=== PATIENT | female | born 1970 | race Caucasian/White ===

== ENCOUNTER → 2020-01-19 13:22 | Outpatient (BNVA) | payer OTHER, SELFPAY | PROVIDERS: Family Provider Nurse Practitioner Family; PCP Nurse Practitioner Family; Visit Provider Obstetrics & Gynecology | DX: R39.15 Urgency of urination (principal); N39.3 Stress incontinence (female) (male); N95.1 Menopausal and female climacteric states; N89.8 Other specified noninflammatory disorders of vagina | CPT/HCPCS: 80053; 81000; 87210 ==

== ENCOUNTER 2020-06-15 06:00 | Outpatient (RCR) | payer OTHER, SELFPAY | END 2020-07-06 23:59 | disposition home or self-care (01) | LOC: SPT 06:00 | PROVIDERS: PCP Nurse Practitioner Family; Referring Provider Nurse Practitioner Family; Visit Provider Nurse Practitioner Family | DX: M54.16 Radiculopathy, lumbar region (principal) | CPT/HCPCS: 97110; 97161 ==

== ENCOUNTER 2020-06-15 12:31 | Outpatient (CLI) | payer OTHER, SELFPAY ==
--- NOTE | 2020-06-15 12:56 | XR_ITS ---
WS: [id number] Bone mineral density performed on a [employer], 06/15/2020 Clinical data: ASYMPTOMATIC MENOPAUSAL Findings: The first 4 lumbar vertebral bodies demonstrated the bone mineral density of 0.888 g/sq cm for a yolanda g adult T score of -2.6. Measurement of the left hip reveals a bone mineral density of 0.848 g/cm2 with a young adult T score of -1.3. Measurement of the right hip reveals the bone mineral density of 0.871 g/cm2 for young adult T score of -1.1. XR/XR DEXA axial skeleton* [id number] Impression: 1. Osteoporosis of the lumbar spine. 2. Osteopenia of both hips.
== END 2020-06-15 12:32 | disposition home or self-care (01) ==
PROVIDERS: PCP Nurse Practitioner Family; Visit Provider Nurse Practitioner Family
DX: Z78.0 Asymptomatic menopausal state (principal); M81.0 Age-related osteoporosis without current pathological fracture; M85.88 Other specified disorders of bone density and structure, other site
CPT/HCPCS: 77080

== ENCOUNTER 2020-06-18 07:06 | Outpatient (CLI) | payer OTHER, SELFPAY ==
--- NOTE | 2020-06-18 07:12 | MR_ITS ---
WS: [id number] MRI CERVICAL SPINE NONCONTRAST HISTORY: HEADACHE COMPARISON: None available. Technique: Multiplanar, multisequence noncontrast imaging of the cervical spine. Straightening and reversal the normal cervical lordosis. Reversal centered at the C4-5 disc level. Th ere is disc osteophyte contact on the ventral thecal sac at the C4-5 and C5-6 levels. Signal within the cervical cord is normal. Visualized posterior fossa is unremarkable. Craniocervical junction, C1 and C2 relationship, odontoid process and soft tissues are normal. C2-C3: Normal. C3-C4: There is shallow central disc protrusion with no stenosis or cord contact. C4-C5: Diffuse annular disc bulging and osteophytic ridging. There is a focal central moderate disc p rotrusion contacting and displacing the thecal sac and cervical cord. Moderate central stenosis with only mild foraminal narrowing. C5-C6: Diffuse osteophytic ridging and annular disc bulging with disc protrusion. There is a focal ce ntral to LEFT paracentral and foraminal disc osteophyte. Asymmetric narrowing and contact on the cerv ical cord, greatest on the LEFT. Mild central and moderate LEFT foraminal stenosis. Mild RIGHT forami nal stenosis. C6-C7: Mild osteophytic ridging. No stenosis. C7-T1: Normal. Paraspinal soft tissue are normal. MR/MR cervical spin wo con* [id number] IMPRESSION: 1. Reversal of the normal cervical lordosis centered at C4-5 and C5-6 with dis c osteophyte contacting the cervical cord. 2. Moderate central stenosis at C4-5 due to disc osteophyte protrusions and co ntact of the ventral cord. Only mild foraminal narrowing. 3. Mild central with moderate LEFT foraminal stenosis at C5-6. Contact and dis placement of the LEFT lateral cervical cord due to disc osteophyte disease.
--- NOTE | 2020-06-18 07:12 | MR_ITS ---
WS: [id number] MRI THORACIC SPINE noncontrast. HISTORY: PAIN IN THORACIC SPINE COMPARISON: None available. TECHNIQUE: Multiplanar sequences are performed in sagittal and axial planes. Mild RIGHT curvature of the thoracic spine. Posterior thoracic alignment is otherwise normal. No comp ression fractures or marrow edema. Signal within the cord is normal. Conus tapers normally ends at th e T12-L1 level. T1-2: Normal. T2-3: Small RIGHT foraminal narrowing due to facet disease. T3-4: Mild bilateral facet joint disease. Only mild RIGHT foraminal narrowing. There is a shallow RI GHT paracentral disc protrusion without cord contact. T4-5: Moderate RIGHT foraminal narrowing due to facet joint arthritis and osteophytes. Very tiny yoly tral disc protrusion. T5-6: Mild bilateral facet joint arthritis, RIGHT greater than LEFT. RIGHT foraminal nerve root slee ve diverticulum. T6-7: Mild bilateral foraminal stenosis due to facet disease. T7-8: Mild foraminal stenosis due to facet disease and osteophytes. Very small LEFT nerve root sleev e diverticulum. T8-9: Small bilateral nerve root sleeve diverticulum without significant stenosis. T9-10: Mild LEFT foraminal stenosis due to facet disease. Small LEFT nerve root sleeve diverticulum. T10-11: Mild facet joint arthritis. 9 mm LEFT nerve root sleeve diverticulum. T11-12: Moderate-sized bilateral nerve root sleeve diverticulum. Largest on the RIGHT measures 10 mm . T12-L1: Small LEFT foraminal nerve root sleeve diverticulum. Numerous bilateral small renal cysts. Largest cyst on the RIGHT measures 18 mm. MR/MR thoracic spin wo con* [id number] IMPRESSION: 1. No high-grade central stenosis. 2. Mild RIGHT curvature thoracic spine. 3. Multilevel nerve root sleeve diverticula with mild to moderate facet joint arthritis. 4. Most significant foraminal stenosis on the RIGHT at T4-5.
== END 2020-06-18 07:07 | disposition home or self-care (01) ==
LOC: RADSHAW 07:09
PROVIDERS: PCP Nurse Practitioner Family; Visit Provider Nurse Practitioner Family
DX: R51.9 Headache, unspecified (principal); M54.6 Pain in thoracic spine; M43.8X4 Other specified deforming dorsopathies, thoracic region; M47.814 Spondylosis without myelopathy or radiculopathy, thoracic region; M48.04 Spinal stenosis, thoracic region; M48.02 Spinal stenosis, cervical region; M25.78 Osteophyte, vertebrae
CPT/HCPCS: 72141; 72146

== ENCOUNTER → 2020-07-05 08:46 | Outpatient (BNVA) | payer OTHER, SELFPAY | PROVIDERS: PCP Nurse Practitioner Family; Visit Provider Orthopaedic Surgery | DX: M54.2 Cervicalgia (principal); M47.892 Other spondylosis, cervical region | CPT/HCPCS: 72050 ==

== ENCOUNTER → 2020-07-11 08:49 | Outpatient (BNVA) | payer OTHER, SELFPAY | PROVIDERS: PCP Nurse Practitioner Family; Referring Provider Orthopaedic Surgery; Visit Provider Anesthesiology Pain Medicine | DX: M79.18 Myalgia, other site (principal); M47.12 Other spondylosis with myelopathy, cervical region; M54.12 Radiculopathy, cervical region; M47.812 Spondylosis without myelopathy or radiculopathy, cervical region; M47.814 Spondylosis without myelopathy or radiculopathy, thoracic region | CPT/HCPCS: 20553; 99205 ==

== ENCOUNTER → 2020-07-27 09:57 | Outpatient (BNVA) | payer OTHER, SELFPAY | PROVIDERS: PCP Nurse Practitioner Family; Visit Provider Orthopaedic Surgery | DX: Z01.812 Encounter for preprocedural laboratory examination (principal); Z20.822 Contact with and (suspected) exposure to COVID-19 | CPT/HCPCS: 87635 ==

== ENCOUNTER 2020-08-01 05:37 | Day surgery (SDC) | payer OTHER, SELFPAY ==
[2020-07-27 10:50] VITALS: BMI 33.3
--- NOTE | 2020-07-27 13:06 | ANES.PREANE2 ---
Pre-Anesthetic Assessment Pre-Anesthetic Assessment: Height/Weight: Height 1.65 m Weight 90.718 kg Preop Diagnosis: cervical spondylosis with Myelopathy Proposed Procedure: Operation Date: 08/01/20 07:00 Proposed Procedures p Anterior Cervical Discectomy & Fusion ACDF C4/5 5/6 06145 72065 52191 76574 12529 M47.12(Not Applicable) - Charlie Vidal, DO Was Beta Sonu taken within 24 hours: Yes Was Clonidine taken within 24 hours: N/A Social: Social History: No alcohol and No tobacco Exam: Pre-Anes Outpt Exam: alert, oriented x 3, clear to auscultation bilaterally and regular rate & rhythm Airway: Submandibular: WNL Cervical ROM: WNL MP: 2 Dentition: Full CV/HEM: CV/HEM: HTN Comments: MVP GI: GI: GERD Metabolic: Metabolic: Morbid obesity Musc/skel: Comments: Neck pain, OK ROM Anesthetic Plan: ASA status: 3 Anesthesia: General Other: PONV Risk of > 500 ml blood loss (7ml/kg in children): No PFSH Anesthesia PFSH: Medical History Hypertension Mitral valve prolapse Obesity Surgical History Broken arm Right arm repair. History of repair of hiatal hernia Laparoscopic. S/P laparoscopic cholecystectomy S/P tonsillectomy and adenoidectomy S/P total abdominal hysterectomy and bilateral salpingo-oophorectomy (~1997) Endometriosis. Family History Father Diabetes Social History (Updated 07/11/20 @ 09:33 by Lucrecia Eller LPN) Smoking and tobacco status: never smoked Alcohol intake: current Alcohol intake frequency: holidays/special occasions only History of recent travel: No Data Anesthesia Cardiac Studies: No Data to Display
[2020-08-01] VITALS (11 sets, daily range): BP systolic 105–160; BP diastolic 80–103; PULSE 68–89; RESP 12–18; TEMP 36.2–36.9; O2SAT 94–99
--- NOTE | 2020-08-01 | SCC_ITS ---
Procedure Done: 1. Anterior diskectomy C4/5 2. Anterior discectomy C5/6 3. Insertion of cage C4/5 4. Insertion of Cage C5/6 5. Instrumentation with anterior plate from C4-C6 6. Use of allograft 24.0 seconds of fluoroscopic guidance, for a cumulative dose of 0.59 mGy, was provided to Dr. Vidal by the radiology department. C-arm images of the cervical spine were saved for the patient's permanent record. CHERID
[2020-08-01] MEDS: sodium chloride 0.9% 1,000 ML 30 ML IV (06:32)
[2020-08-01] MEDS: scopolamine 1.5 Patch 1 PATCH TRANSDERMA (06:33)
--- NOTE | 2020-08-01 06:39 | W.PM.OPSUD ---
Surgery/Procedure H&P Update DATE OF PROCEDURE: August 01, 2020 DATE H&P PERFORMED: 07/05/20 H&P UPDATE INFORMATION: I have reviewed H&P completed within last 30 days, I have examined patient prior to procedure and No changes to prior documentation PREOP DIAGNOSIS: cervical spondylosis with Myelopathy PLANNED PROCEDURE: Operation Date: 08/01/20 07:00 Proposed Procedures p Anterior Cervical Discectomy & Fusion ACDF C4/5 5/6 86429 04048 86617 [id number] 61916 M47.12(Not Applicable) - Charlie Vidal DO
--- NOTE | 2020-08-01 06:53 | P.ANESUD_ITS ---
Pre-Anesthetic Update Pre-Anesthetic Assessment: Date of Surgery/Procedure: 08/01/20 Preop Sadie gnosis: cervical spondylosis with Myelopathy Proposed Procedure: Operation Date: 08/01/20 07:00 Proposed Procedures p Anterior Cervical Discectomy & Fusion ACDF C4/5 07/12 36204 00711 73699 72914 24327 M47.12(Not Applicable) - Charlie Vidal, DO Any changes to Pre-Anesthetic Assessment?: No Last Intake: Intake Last Liquid Date 07/31/20 Last Liquid Time 22:00 Last Solid Date 08/01/20 Last Solid Time 19:30 Vitals: Temperature 98.5 F 08/01/20 06:18 Temperature Source Temporal Artery S can 08/01/20 06:18 Pulse Rate 68 08/01/20 06:18 Pulse Rhythm 08/01/20 06:18 Pulse Strength 3+ Normal 08/01/20 06:18 Respiratory Rate 18 08/01/20 06:18 Blood Pressure 105/80 08/01/20 06:18 Blood Pressure Magalis n 88 08/01/20 06:18 Pulse Oximetry 97 08/01/20 06:18 Oxygen Delivery Me thod 08/01/20 06:18 Exam: Pre-Anes Outpt Exam: alert, oriented x 3, clear to auscultation bilaterally and regular rate & rhythm Cardiac Studies: No Data to Display
[2020-08-01] MEDS: clindamycin 900 MG/50 ML PREMIX 100 MG IV (06:57)
--- NOTE | 2020-08-01 09:10 | P.OP_ITS ---
Operative Report Date of procedure: August 01, 2020 Pre-op Diagnosis: cervical spondylosis with Myelopathy Post-op diagnosis: same Procedure Done: 1. Anterior diskectomy C4/5 2. Anterior discectomy C5/6 3. Insertion of cage C4/5 4. Insertion of Cage C5/6 5. Instrumentation with anterior plate from C4-C6 6. Use of allograft Anesthesia: General Estimated blood loss (mL): 25 Condition: stable Disposition: PACU Procedure: 1. Anterior diskectomy C4/5 2. Anterior discectomy C5/6 3. Insertion of cage C4/5 4. Insertion of Cage C5/6 5. Instrumentation with anterior plate from C4-C6 6. Use of allograft The patient was taken to the operating room, where he underwent general endotracheal anesthesia without complications. He was then positioned supine on the operating table, and all areas of impingement were well padded. The arms were carefully padded and tucked at his sides. A roll was placed between the shoulder blades.. An x-ray was done to determine the appropriate level for the skin incision. The entire neck was then sterilely prepped and draped in the usual fashion. Neuromonitoring was attached prior to prepping. A transverse skin incision was made and carried down to the platysma muscle. This was then split in line with its fibers. Blunt dissection was carried down medial to the carotid sheath and lateral to the trachea and esophagus until the anterior cervical spine was visualized. A needle was placed into a disc and an x-ray was done to determine its location. The longus colli muscles were then elevated bilaterally with the electrocautery unit. Self-retaining retractors were placed deep to the longus colli muscle. Attention was brought to the C4/5 level that was confirmed on x-ray. A caspar pin was placed into the C 4 vertebrae and the C5 vertebrae. The disk space was then distracted. The microscope was then brought in. A radical anterior discectomies were performed at C4/5. This included complete removal of the anterior annulus, nucleus, and posterior annulus. The posterior longitudinal ligament was removed as were the posterior osteophytes. Foraminotomies were then accomplished bilaterally. This was done using a high speed jd, kerrison rongeurs and curretes Once all of this was accomplished, the curved currette was used to check for any residual compression. The central canal was wide open as were the foramen. A high-speed bur was used to remove the cartilaginous endplates above and below the interspace. Bleeding cancellous bone was exposed. The disc space were measured and appropriate size cage were placed sterilely onto the field. Allograft graft was packed into the cages. The cage was then placed and there was good juxtaposition against the bleeding decorticated surfaces and good distraction of each interspace. A size 6 cage was used Attention was brought to the next interspace. Attention was brought to the C5/6 level that was confirmed on x-ray. A caspar pin was placed into the C6 after the (C4 [place] pin was removed bone wax was used) vertebrae and the C5 vertebrae remained. The disk space was then distracted. The microscope was then brought in. A radical anterior discectomies were performed at []. This included complete removal of the anterior annulus, nucleus, and posterior annulus. The posterior longitudinal ligament was removed as were the posterior osteophytes. Foraminotomies were then accomplished bilaterally. This was done using a high speed jd, kerrison rongeurs and curretes Once all of this was accomplished, the curved currette was used to check for any residual compression. The central canal was wide open as were the foramen. A high-speed bur was used to remove the cartilaginous endplates above and below the interspace. Bleeding cancellous bone was exposed. The disc space were measured and appropriate size cage were placed sterilely onto the field. Allograft graft was packed into the cages. The cage was then placed and there was good juxtaposition against the bleeding decorticated surfaces and good distraction of each interspace. A size 7 cage was used The [place] pins were removed. Bone wax was used to prevent any bleeding from occurring at the pin sites. The appropriate size anterior cervical locking plate was chosen and bent into gentle lordosis. Two screws were then placed into each of the vertebral bodies at C4 and C6. Only placed 1 screw in C5. There was excellent purchase. A final x-ray was done confirming good position of the hardware and Cages. The locking screws were then applied, also with excellent purchase. Following a final copious irrigation, there was good hemostasis and no dural leaks. The carotid pulse was strong. The wounds were then closed in layers using 2-0 Vicryl suture for the platysma muscle, 2-0 Vicryl suture for the subcutaneous tissue, and 4-0 monocryl suture in a subcuticular skin closure. Glue was placed followed by application of a sterile dressing. The drain was hooked to bulb suction. A soft collar was applied. The patient was then carefully returned to the supine position on his hospital bed where he was reversed and extubated and taken to the recovery room having tolerated the procedure well.
--- NOTE | 2020-08-01 09:32 | XR_ITS ---
WS: [id number] Exam: XR cervical spine 3V* [id number] Date/Time of Exam: 08/01/2020 9:32 AM Reason For Exam: OR PICS Intraoperative AP and lateral C-arm images of the cervical spine are submitted for evaluation. There is interbody fusion of the C-spine from C4 to C6 with anterior plate and screw fixation. There are disc spacers at C4-5 and C5-6. The fusion is in anatomic alignment. An endotracheal tube is noted in the airway. XR/XR cervical spine 3V* [id number] IMPRESSION: 1. Anterior cervical fusion from C4 to C6 appearing to be in good alignment wit hout obvious complication.
--- NOTE | 2020-08-01 09:41 | SUR.PHASEI ---
0941- ORAL AIRWAY OUT, SIMPLE MASK IN PLACE AT 6LPM SAT 97%
--- NOTE | 2020-08-01 10:46 | SUR.PHASEI ---
Patient was fitted for neck brace by physical therapy. Now states pain is 8/10, placed order for pain medication. Patient eating a cracker and drinking a sprite. If PO intake is tolerated will administer pain medication
[2020-08-01] MEDS: HYDROcodone-acetaminophen 5-325 mg Tablet 2 TAB PO (10:56)
--- NOTE | 2020-08-01 13:51 | ANE.PACU2 ---
Inpatient post-anesthesia follow up: Airway intact: Yes Vital signs: Temperature 97.6 F Pulse Rate 76 Respiratory Rate 17 Blood Pressure 145/98 Pulse Oximetry 94 Oxygen Delivery Me thod Nasal Cannula Oxygen Flow Rate 2 Fraction of Inspir ed Oxygen Hydration adequate: Yes Nausea and vomiting: No Pain level: 3 Mental status: Baseline
== END 2020-08-01 11:36 | disposition home or self-care (01) ==
PROVIDERS: PCP Nurse Practitioner Family; Visit Provider Orthopaedic Surgery
PROC: 0RB30ZZ Excision of Cervical Vertebral Disc, Open Approach (ICD-10-PCS; CPT 22551; principal; 2020-08-01 07:00)
DX: M47.12 Other spondylosis with myelopathy, cervical region (principal); I10 Essential (primary) hypertension; K21.9 Gastro-esophageal reflux disease without esophagitis; E66.01 Morbid (severe) obesity due to excess calories; Z68.33 Body mass index [BMI] 33.0-33.9, adult
CPT/HCPCS: 20930; 22551; 22552; 22845; 22853 ×2; 72040; 76000; 97110; C1713; C9359; J0330; J1100; J1170; J2250; J2405; J2704; J3010; J3490; J7030; L0174

== ENCOUNTER → 2020-09-20 16:13 | Outpatient (BNVA) | payer OTHER, SELFPAY | PROVIDERS: PCP Nurse Practitioner Family; Visit Provider Orthopaedic Surgery | DX: Z48.89 Encounter for other specified surgical aftercare (principal) | CPT/HCPCS: 72040 ==

== ENCOUNTER → 2020-10-27 14:36 | Outpatient (BNVA) | payer OTHER, SELFPAY | PROVIDERS: PCP Nurse Practitioner Family; Visit Provider Registered Nurse Neonatal Intensive Care | DX: Z20.822 Contact with and (suspected) exposure to COVID-19 (principal) | CPT/HCPCS: 87635 ==

== ENCOUNTER → 2020-11-20 08:14 | Outpatient (BNVA) | payer OTHER, SELFPAY | PROVIDERS: PCP Nurse Practitioner Family; Visit Provider Orthopaedic Surgery | DX: M47.12 Other spondylosis with myelopathy, cervical region (principal); Z48.89 Encounter for other specified surgical aftercare | CPT/HCPCS: 72040 ==

== ENCOUNTER → 2021-06-07 10:44 | Outpatient (BNVA) | payer OTHER, SELFPAY | PROVIDERS: PCP Nurse Practitioner Family; Referring Provider Nurse Practitioner Women's Health; Visit Provider Obstetrics & Gynecology | DX: N99.3 Prolapse of vaginal vault after hysterectomy (principal) | CPT/HCPCS: 81000 ==

== ENCOUNTER → 2021-06-19 10:22 | Outpatient (BNVA) | payer OTHER, SELFPAY | PROVIDERS: PCP Nurse Practitioner Family; Referring Provider Registered Nurse; Visit Provider Orthopaedic Surgery | DX: M17.11 Unilateral primary osteoarthritis, right knee (principal); M25.561 Pain in right knee | CPT/HCPCS: 73560; 73565 ==

== ENCOUNTER 2021-07-26 08:00 | Outpatient (CLI) | payer OTHER, SELFPAY ==
--- NOTE | 2021-07-26 08:00 | MR_ITS ---
WS: [id number] MRI RIGHT KNEE HISTORY: Fell down stairs several years ago with knee pain. Swelling. COMPARISON: Radiograph 06/19/2021. Anterior cruciate ligament: Intact. Posterior cruciate ligament: Intact. Medial collateral ligament: Intact. Posterior lateral corner structures: Intact. Medial menisci: Intact. Normal signal, size and shape. Lateral meniscus: Intact. Normal signal, size and shape. Extensor mechanism: Distal quadriceps tendon and patellar tendons are intact. Fluid and soft tissue: Very small amount of fluid in the suprapatellar joint space. Just slightly gre ater than normal. No Tovar's cyst. Osseous and articular structures: Patellofemoral compartment: Mild narrowing of the patellofemoral compartment. Mild thinning and fissu ring of the cartilage. No marrow edema. Medial compartment: Mild narrowing of the medial compartment. There is moderate loss of cartilage wit h fissuring and thinning. No marrow edema or fracture. Lateral compartment: Minimal narrowing of the lateral compartment. Very superficial fraying of the ca rtilage along the tibial plateau. There is a well-circumscribed intra-articular fragment measuring 9 x 7 mm adjacent to the distal ACL. This follows marrow signal on all sequences and probably represents a small osseous or cartilage fra gment. Fragment is towards the anterior intercondylar notch. MR/MR knee RT wo con* [id number] IMPRESSION: 1. Intra-articular fragment measuring 9 x 7 mm is probably a fragment of bone or cartilage which is within the anterior intercondylar notch and closely assoc iated with the distal ACL. The donor site is not evident. 2. Mild narrowing of the medial compartment with moderate loss of cartilage. 3. No meniscal tear. 4. Mild chondromalacia patella.
== END 2021-07-26 08:01 | disposition home or self-care (01) ==
LOC: RAD 08:00
PROVIDERS: PCP Nurse Practitioner Family; Visit Provider Orthopaedic Surgery
DX: M17.11 Unilateral primary osteoarthritis, right knee (principal)
CPT/HCPCS: 73721

== ENCOUNTER → 2021-09-06 09:55 | Outpatient (BNVA) | payer OTHER, SELFPAY | PROVIDERS: PCP Nurse Practitioner Family; Visit Provider Obstetrics & Gynecology | DX: N39.46 Mixed incontinence (principal); N81.10 Cystocele, unspecified; N81.6 Rectocele; N81.9 Female genital prolapse, unspecified; Z01.812 Encounter for preprocedural laboratory examination; N94.10 Unspecified dyspareunia | CPT/HCPCS: 80053; 81000; 85025; 86850; 86900 ==

== ENCOUNTER 2021-09-11 11:19 | Observation (INO) | payer OTHER, SELFPAY ==
[2021-09-06 10:51] VITALS: BMI 33.6
--- NOTE | 2021-09-06 11:06 | ANES.PREANE2 ---
Pre-Anesthetic Assessment Height/Weight: Height 1.7 m Weight 97.522 kg Preop Diagnosis: cervical spondylosis with Myelopathy Operation Date: 09/11/21 09:00 Proposed Procedures p Anterior Repair Anterior Colporrhaphy 14491/N81.10/N8136/Single incision sling 91187 to procedure(Not Applicable) - Bruce Sharpe MD s Sling(Not Applicable) - Bruce Sharpe MD Familial anesthetic complications: PONV - scop patch helps Social No alcohol and No tobacco Exam alert, oriented x 3, clear to auscultation bilaterally and regular rate & rhythm Airway Mallampati: Class III Dentition: full Pulmonary None reported CV/HEM MVP - No symptoms None reported Hepatic None reported GI Gastroesophageal Reflux Disease Metabolic None reported Musc/skel Osteoarthritis/DJD Neuropsych None reported Anesthetic Plan ASA status: 2 Anesthesia: General Risk of > 500 ml blood loss (7ml/kg in children): No Medications/Allergies Home Medications Medication Instructions Recorded Confirmed Last Taken Type atenolol 25 mg tablet 25 mg PO DAILY 01/19/20 09/06/21 09/06/21 History cholecalciferol (vitamin D3) 25 25 mcg PO DAILY 01/19/20 09/06/21 09/06/21 History mcg (1,000 unit) capsule lactobacillus combination no.8 3 3,000 mmu cells PO DAILY 01/19/20 09/06/21 09/06/21 History billion cell capsule (Adult Probiotic) esomeprazole magnesium 40 mg 40 mg PO DAILY 05/14/21 09/06/21 09/06/21 History capsule,delayed release (Nexium) estradiol 10 mcg vaginal tablet 10 mcg VAGINAL .twice weekly tab 06/07/21 09/06/21 09/05/21 History (Yuvafem) doxycycline hyclate 100 mg capsule 100 mg PO BID 09/06/21 09/06/21 09/06/21 History methylprednisolone [Medrol (Darvin)] See Taper PO .as directed 09/06/21 09/06/21 09/06/21 History Allergies Allergy/AdvReac Type Severity Reaction Status Date / Time Penicillins Allergy Unknown rash Verified 09/06/21 09:16 Sulfa (Sulfonamide AdvReac Intermediate nauseated Verified 09/06/21 09:16 Antibiotics) and sick to [facility] Anesthesia Medical History Cystic kidney disease Hypertension Mitral valve prolapse No pertinent past medical history neghx: dm,thyroid,dvt/pe PCP: Niraj Mckeon Obesity Surgical History Broken arm Right arm repair. H/O neck surgery (~2020) History of repair of hiatal hernia Laparoscopic. S/P laparoscopic cholecystectomy S/P tonsillectomy and adenoidectomy S/P total abdominal hysterectomy and bilateral salpingo-oophorectomy (~1997) Endometriosis. Family History Father Diabetes Hypertension Grandfather Colon cancer Maternal, dx age unknown Hypercholesteremia Maternal Mother Hypercholesteremia Hypertension Denies family history of Ovarian cancer Heart disease Breast cancer Uterine cancer Thyroid disease Stroke Social History Smoking and tobacco status: never smoked Data Anesthesia Cardiac Studies: No Data to Display
[2021-09-11] VITALS (19 sets, daily range): BP systolic 103–125; BP diastolic 68–91; PULSE 60–87; RESP 12–21; TEMP 36.3–36.8; O2SAT 91–100
[2021-09-11] MEDS: sodium chloride 0.9% 500 ML IV (08:02)
[2021-09-11] MEDS: scopolamine 1.5 Patch 1 PATCH TRANSDERMA (08:02)
--- NOTE | 2021-09-11 08:11 | P.ANESUD_ITS ---
Pre-Anesthetic Update Pre-Anesthetic Assessment: Date of Surgery/Procedure: 09/11/21 Preop Sadie gnosis: Cystocele, rectocele Proposed Procedure: Operation Date: 09/11/21 09:00 Proposed Procedures p Anterior Repair Anterior Colporrhaphy 64350/N81.10/N8136/Single incision sling [id number] to procedure(Not Applicable) - Bruce Sharpe MD s Sling(Not Applicable) - Bruce Sharpe MD Any changes to Pre-Anesthetic Assessment?: No Last Intake: Intake Last Liquid Date 09/10/21 Last Liquid Time 20:00 Last Solid Date 09/10/21 Last Solid Time 20:00 Vitals: Temperature 98.2 F 09/11/21 07:36 Temperature Source Temporal Artery S can 09/11/21 07:36 Pulse Rate 64 09/11/21 07:36 Pulse Rhythm 09/11/21 07:36 Pulse Strength 3+ Normal 09/11/21 07:36 Respiratory Rate 18 09/11/21 07:36 Blood Pressure 120/83 09/11/21 07:36 Blood Pressure Magalis n 95 09/11/21 07:36 Pulse Oximetry 96 09/11/21 07:36 Oxygen Delivery Me thod 09/11/21 07:36 Exam: Pre-Anes Outpt Exam: alert, oriented x 3, clear to auscultation bilaterally and regular rate & rhythm Additional Exam Findings (including area of procedure): Strong h/o PONV, last procedure (ACDF) no N/V with TIVA and phenergan Cardiac Studies: No Data to Display
--- NOTE | 2021-09-11 09:07 | W.PM.OPSUD ---
Surgery/Procedure H&P Update DATE OF PROCEDURE: September 11, 2021 DATE H&P PERFORMED: 09/06/21 H&P UPDATE INFORMATION: I have reviewed H&P completed within last 30 days, I have examined patient prior to procedure and No changes to prior documentation PREOP DIAGNOSIS: Cystocele, rectocele PLANNED PROCEDURE: Operation Date: 09/11/21 09:00 Proposed Procedures p Anterior Repair Anterior Colporrhaphy 91469/N81.10/N8136/Single incision sling 36098 to procedure(Not Applicable) - Bruce Sharpe MD s Sling(Not Applicable) - Bruce Sharpe MD
[2021-09-11] MEDS: vancomycin 1,000 MG in sodium chloride 0.9% 250 ML 250 MG IV (09:38)
[2021-09-11] MEDS: estrogens Conjugated Cream 30 gm 1 APPLIC VAGINAL (11:04)
--- NOTE | 2021-09-11 11:34 | PM.OP ---
Operative Report Date of procedure: September 11, 2021 Pre-op diagnosis: Preop Diagnosis Cystocele, rectocele Post-op diagnosis: Same as above Procedure done: Anterior colporrhaphy augmented with allograft. Single incision mid urethral sling. Posterior colporrhaphy. Cystoscopy Implants: Coloplast Altis single incision sling Surgeon: Bruce Sharpe MD Estimated blood loss (mL): 150 IV fluids (mL): 800 Urine output (mL): 300 Complications: none Procedure: After obtaining informed consent, the patient was taken to the operating room and placed in the supine position, given general anesthesia, and prepped and draped in sterile fashion. The abdomen, vulva and vagina were prepped and draped in a sterile manner. A time out procedure was performed. The anterior vaginal mucosa beneath the midurethra was infiltrated with 0.5% Marcaine with epinephrine. A vertical midline incision was made beneath the midurethra, nearly 1.5 cm length. Careful submucosal dissection was performed bilaterally up to the interior portion of the inferior pubic ramus. The insertion of adductor longus tendon on the patient?s pubic ramus was identified as reference land anna. Palpated the notch along the internal edge of ischiopubic ramus where the adductor longus tendon and the inferior pubic ramus meet. The Altis single incision sling (SIS) was selected. Then the needle of the SIS inserted aiming at the location of this notch. One of the integrated self-fixating tips place onto the needle by sliding it over the end of the needle. The needle/sling assembly was inserted toward the location of identified reference notch making sure that the flat of the handle is perpendicular to the desired path. The needle was tracked along the posterior surface of the ischiopubic ramus until the midline anna on the mesh is approximately at the midline position under the urethra. The needle was removed and the same was repeated on the contralateral side until the appropriate sling tension under the urethra was achieved ensuring that the mesh lays flat. The needle was removed and vaginal incision was closed in a running interlocking fashion with 2-0 Vicryl. The vaginal mucosa was then injected in the midline with normal saline. The vaginal mucosa was scored in the midline with the Bovie approximately 1 cm medial to the urethral meatus to 1 cm distal to the vaginal cuff. This vaginal mucosa was then undermined and then incised in the midline with the Metzenbaum scissors. The lateral aspects of the vaginal mucosa were then grasped with the Allis clamps and the vaginal mucosa was then dissected off the underlying fascia with the Metzenbaum scissors. Again, there was noted to be quite a bit of oozing at the incision, which was controlled with cautery. After adequate dissection was performed, bilaterally. A Coloplast dermal allograft was modified at time of application to fit spacea, 3 x 3 cm piece . The allograft placed in front of cystocele ready to be implanted facing the vagina mucosa. Suture is placed at distal end of graft and placed towards vaginal cuff. Final suture is placed on proximal portion of the graft to complete the placement overlying the bladder. Then Interrupted vertical mattress sutures of 0 Vicryl were used to elevate the cystocele superiorly. The excessive vaginal mucosa was then trimmed with the Metzenbaum scissors and the vaginal mucosa was then reapproximated in the running interlocking fashion with 2-0 Vicryl. A posterior repair was performed next. Posterior colpoperineorrhaphy was performed with Allis clamps to grasp hymenal caruncles to allow 2-3 fingerbreadths caliber; infiltrated with 1% Lidocaine with epinephrine before triangular incision. An incision was made across the introitus. Metzenbaum scissors were used to tunnel beneath posterior vaginal mucosa until the apex of the rectocele bulge was reached. At this point, the rectum was from the posterior vaginal mucosa using sharp and blunt dissection, and the rectal bulge imbricated in the midline with interrupted sutures of 2-0 vicryl suture. Levator ani muscles on either side were approximated in the midline with interrupted 0 Vicryl sutures. Excess posterior vaginal mucosa was excised, and the vaginal episiotomy was repaired by approximating the posterior vaginal mucosa with a suture of Vicryl #0. Then the Sierra catheter was removed and cystoscope was inserted. The bladder was filled with sterile water. Complete evaluation of the bladder mucosa was performed noting no lacerations, dimpling, tears, bleeding of the mucosa or muscular layers. Both ureteral orifices were identified. Prompt excretion of urine from both ureteral orifices was noted. Cystoscope was withdrawn. The Sierra catheter was replaced. Excellent hemostasis was obtained. A vaginal pack is placed overnight as postoperative support for the vaginal tissues after graft placement and closure of vaginal incisions. Sponge, lap, needle, and instrument counts were correct times three. The patient was taken to the recovery room, awake and in stable condition.
[2021-09-11] MEDS: ketorolac 30 mg/mL INJ IVP ×2 (14:02→21:47)
[2021-09-11] MEDS: dextrose 5%-lactated ringers 1,000 ML 125 ML IV ×2 (14:05→23:06)
--- NOTE | 2021-09-11 16:34 | ANE.PACU2 ---
Inpatient post-anesthesia follow up: Airway intact: Yes Vital signs: Temperature 98.1 F Pulse Rate 81 Respiratory Rate 16 Blood Pressure 115/69 Pulse Oximetry 96 Oxygen Delivery Me thod Room Air Oxygen Flow Rate 8 Fraction of Inspir ed Oxygen Hydration adequate: Yes Nausea and vomiting: No Pain level: 3 Mental status: Baseline
[2021-09-11] MEDS: HYDROcodone-acetaminophen 5-325 mg Tablet PO (17:32)
[2021-09-11] MEDS: docusate sodium 100 mg Capsule PO (17:32)
--- NOTE | 2021-09-11 19:01 | PC.NURSE ---
Bedside report given to Terri ALARCON at this time.
[2021-09-12] MEDS: ketorolac 30 mg/mL INJ IVP ×2 (03:21→09:57)
[2021-09-12 04:00] VITALS: BP 118/73; PULSE 83; RESP 18; TEMP 36.8; O2SAT 95
[2021-09-12] MEDS: HYDROcodone-acetaminophen 5-325 mg Tablet PO (06:08)
[2021-09-12] MEDS: dextrose 5%-lactated ringers 1,000 ML 125 ML IV (06:09)
--- NOTE | 2021-09-12 06:22 | PC.NURSE ---
dewey removed at 0610
[2021-09-12 07:37] LABS: Hematocrit 31.6 % (37.0-47.0); Mean Corpuscular HGB Conc 34.8 g/dL (30.0-36.0); Mean Corpuscular Hemoglobin 28.6 pg (28.0-34.0); Mean Corpuscular Volume 82.1 fl (81-99); Mean Platelet Volume 10.1 fL (7.4-10.4); Platelet Count 240 10^3/cmm (130-400); Red Blood Count 3.85 10^6/uL (4.1-5.3); Red Cell Distribution Width 13.9 % (12.1-15.1); White Blood Count 11.7 10^3/uL (4.0-10.0)
[2021-09-12 08:00] VITALS: BP 108/73; PULSE 65; PULSE 84; RESP 16; TEMP 36.2; O2SAT 97
--- NOTE | 2021-09-12 09:55 | PC.NURSE ---
Patient voided with some blood present. Bladder scanned with 50mL at most observed via bladder scanner.
[2021-09-12] MEDS: atenolol 50 mg Tablet 25 MG PO (09:58)
[2021-09-12] MEDS: cholecalciferol (vitamin D3) 1,000 unit Tablet 1000 UNIT PO (09:58)
[2021-09-12] MEDS: pantoprazole DR 40 mg Tablet PO (09:59)
[2021-09-12] MEDS: lactobacillus 1 Tablet 1 TAB PO (09:59)
[2021-09-12] MEDS: docusate sodium 100 mg Capsule PO (09:59)
--- NOTE | 2021-09-12 10:24 | P.DS_ITS ---
Discharge Providers VENTILATING EXPERT Date of Admission: 09/11/21 11:19 Date of Discharge: 09/12/21 Attending Provider at Admission: Bruce Sharpe MD Attending Provider at Discharge: Bruce Sharpe MD Primary Care Provider: Vickie QuiñonezP-C Hospital Course Hospital Course Mrs. Espana 51-year-old female admitted for planned anterior colporrhaphy augmented with allograft, single incision mid urethral sling and posterior colporrhaphy. The procedures were performed without complication. Postop overnight observation was uneventful. She is afebrile and hemodynamically stable postoperative day 1. Tolerating diet well. Ambulating without difficulty. PVR within normal limits. Physical Exam Narrative: GA: Alert and oriented ?3. HEENT: WNL. Heart: Regular rate and rhythm. Lungs: Clear to auscultation bilaterally. Abdomen: Bowel sounds present, nontender. DEMAND EQUIPMENT REPAIRER: Spotting bleeding. Extremities: No edema, no cyanosis, no calves pain. Urinary Catheter Management: Sierra: Cath Placed During This Visit: yes Urinary Catheter Date of Insertion: 09/11/21 Urinary Catheter Time of Insertion: 10:08 History History History 2 Term 2 Miscarriages/Ectopic 0 0 Living Children 2 Discharge Data Studies Completed and Pending Pending at discharge Category Date Time Status ES surgery / GI images Routine Exams 09/11/21 09:14 Taken Laboratory Results WBC 11.7 10^3/uL (4.0-10.0) H 09/12/21 07:25 RBC 3.85 10^6/uL (4.1-5.3) L 09/12/21 07:25 Hgb 11.0 g/dL (11.5-15.3) L 09/12/21 07:25 Hct 31.6 % (37.0-47.0) L 09/12/21 07:25 MCV 82.1 fl (81-99) 09/12/21 07:25 MCH 28.6 pg (28.0-34.0) 09/12/21 07:25 MCHC 34.8 g/dL (30.0-36.0) 09/12/21 07:25 RDW 13.9 % (12.1-15.1) 09/12/21 07:25 Plt Count 240 10^3/cmm (130-400) 09/12/21 07:25 MPV 10.1 fL (7.4-10.4) 09/12/21 07:25 Vitals Last Vital Signs Temp 97.2 F L 09/12/21 08:00 Pulse 65 09/12/21 08:00 Resp 16 09/12/21 08:00 BP 108/73 09/12/21 08:00 Pulse Ox 97 09/12/21 08:00 Discharge Plan Discharge Patient Disposition: Home Condition: Stable Prescriptions: New hydrocodone-acetaminophen 5-325 mg tablet 1 tab PO Q4H PRN (Reason: pain) Qty: 30 0RF acetaminophen 325 mg capsule 325 mg PO Q4H PRN (Reason: fever or pain) Qty: 60 0RF ibuprofen 800 mg tablet 800 mg PO TID PRN (Reason: pain) Qty: 60 0RF Continued atenolol 25 mg tablet 25 mg PO DAILY 0RF cholecalciferol (vitamin D3) 25 mcg (1,000 unit) capsule 25 mcg PO DAILY 0RF Adult Probiotic 3 billion cell capsule 3,000 mmu cells PO DAILY 0RF Rx Instructions: administer with a meal esomeprazole magnesium [Nexium] 40 mg capsule,delayed release(DR/EC) 40 mg PO DAILY 0RF estradiol [Yuvafem] 10 mcg tablet 10 mcg vaginal .twice weekly 0RF Rx Instructions: Insert vaginally twice weekly Discharge Orders: Discharge Order (Routine); Ordered 09/12/21 Ordered By: Bruce Sharpe Referrals: Bruce Sharpe MD [Physician] - 2 weeks Discharge Diet: Usual diet Discharge Activity: Limit activity as instructed Patient Instructions: Opioid Safety, Bladder Sling for Women (GEN), Posterior Vaginal Repair (GEN), Anterior Vaginal Repair (GEN) Activity Restrictions/Additional Instructions: 1. Please call [facility] on next working day to make your post-operative appointment in 2 weeks. 2. Please stay home until you come back to the clinic on first post-operative check up. 3. Please follow instructions on your medications CAREFULLY. 4. If you have abdominal incision, do not cover it unless dressing is necessary because of drainage. OK to shower, but avoid bath. Leave steri-strips until they fall off. If they are still on one week after surgery, you may remove them. 5. If you had vaginal surgery or vaginal repair, Dr. Albino may instruct you to take SITZ bath. 6. Yellow, blood tinged odorous vaginal discharge is usually normal after hysterectomy or vaginal surgeries. 7. No sexual intercourse, tampons, or douches until you are completely released from the post-operative care. 8. Avoid constipation by eating right and maybe using some Metamucil or Milk of Magnesia. 9. All prescription refills are given during the working hours. Please do no wait till it runs out. Call the clinic at [phone] before your medication runs out. The clinic will get in touch with your doctor to prescribe medications if necessary. 10. Please remain within 40 mile radius from our hospital because emergencies do happen now and then during the post-operative period. 11. If you have stairs at home, take one step at a time slowly and minimize the number of trips. It helps to stay in one floor for the next few days. No lifting except what you can lift by one hand until you are released from the post-operative care. 12. Driving is discouraged until you are well healed. It may be 3-4 weeks before you feel strong enough to drive. You should be able to turn and look through the rear window without pain and you should be able to push the brake pedal very hard without pain before you drive. No fast rules, but SAFETY should be your primary concern. DO NOT drive if you are on sedating medications such as narcotics. 13. Call the clinic (during working hours) to make urgent appointment or go to the Emergency room, if any of the following occurs: i. Vaginal bleeding becomes heavy, more than a period. ii. Incision becomes red and sore, or drains pus. iii. Your temperature is over 100.4 or you have chill. iv. IV site becomes red and swollen (a little ``knot?? is usually OK) v. Persistent nausea and vomiting vi. Persistent constipation or diarrhea vii. Rash or allergic reaction to medications. Discharge Attestations VENTILATING EXPERT Time Spent in Discharge Care*: greater than 30 min Coding Level of Care Code Acute Environmental Adviser for Shankar Khalil
--- NOTE | 2021-09-12 10:44 | PC.CHAP ---
Pastoral Care Encounter/Spiritual Assessment Type of Contact [] Declined dowel sticker operator visit [] Patient/Family/Request visit [] Outpatient visit [] Follow-up visit [] Physician referral [] Code/Alert [x] Routine visit [] Staff referral [] Actively dying [] Patient sleeping [] Family support [] [] Out of room [] Palliative care [] [x] Receiving care in room [] Pre-surgical visit [] Trauma [] Long length of stay [] ICU visit [] Other: Relational/Emotional Strength [x] Patient feels connected with others/family/visitors/staff [] Distress [] Loneliness/isolation [] Abandonment Spirituality of Patient [x] Person of Keri [] Attends Gnosticism of their Keri [x] Believes in Prayer [] Reads Bible or Scientology materials [] There are Spiritual issues to be addressed Endless Track Vehicle Supervisor Interventions [x] Prayer [x] Active listening [x] Non-anxious presence [x] Spiritual/emotional support [] Crisis/trauma care [x] Spiritual counseling [] Bereavement support [] Provided bereavement packet [] Provided Bible/devotional materials [] Provided toy/stuffed animal, coloring book to patient or family member [] Provided Communion [] Anointing/[place] [] Salvation [x] Completed spiritual assessment [] Other: Impact on Illness or Injury [] Angry [] Fearful [x] Anxious [] Often cries [] Exhaustion [] Unable to work [] Unable to attend uatsdin [] Unable to walk/stand [] Unable to read [] Unable to drive [] Unable to eat/drink [] Unable to sleep [] Unable to be with family [] Patient intubated [] Other: Summary proceeduer on b lader feeling good has a good attitude + family well be going home Time spent with patient 10 mins
[2021-09-12 11:51] VITALS: BP 106/67; PULSE 63; RESP 16; TEMP 36.5; O2SAT 98
[2021-09-12] MEDS: ibuprofen 800 mg tablet PO (12:28)
[2021-09-12 14:56] VITALS: BP 106/67; PULSE 63; RESP 16; TEMP 36.5; O2SAT 98
== END 2021-09-12 14:30 | disposition home or self-care (01) ==
LOC: MEDSURG 11:20
PROVIDERS: Admitting Provider Obstetrics & Gynecology; PCP Nurse Practitioner Family; Visit Provider Obstetrics & Gynecology
PROC: 0JQC0ZZ Repair Pelvic Region Subcutaneous Tissue and Fascia, Open Approach (ICD-10-PCS; CPT 57240; principal; 2021-09-11 09:00)
PROC: (CPT 57288; 2021-09-11 09:00)
PROC: 0TJB8ZZ Inspection of Bladder, Via Natural or Artificial Opening Endoscopic (ICD-10-PCS; CPT 52000; 2021-09-11 09:00)
DX: N81.10 Cystocele, unspecified (principal); N81.6 Rectocele; K21.9 Gastro-esophageal reflux disease without esophagitis; M19.90 Unspecified osteoarthritis, unspecified site; E66.9 Obesity, unspecified; Z68.33 Body mass index [BMI] 33.0-33.9, adult; I12.9 Hypertensive chronic kidney disease with stage 1 through stage 4 chronic kidney disease, or unspecified chronic kidney disease; N18.9 Chronic kidney disease, unspecified
CPT/HCPCS: 57260; 57288; 36415; 85027; C1713; C1762; G0378; J1100; J1200; J1885; J2250; J2405; J2704; J2710; J3010; J3370; J3490; J7040; J7050; Q9968

== ENCOUNTER → 2021-09-30 11:07 | Outpatient (BNVA) | payer OTHER, SELFPAY | PROVIDERS: PCP Nurse Practitioner Family; Visit Provider Obstetrics & Gynecology | DX: N93.9 Abnormal uterine and vaginal bleeding, unspecified (principal); R10.9 Unspecified abdominal pain; G89.18 Other acute postprocedural pain | CPT/HCPCS: 85027; 87086 ==

== ENCOUNTER 2021-11-01 08:26 | Outpatient (CLI) | payer OTHER, SELFPAY ==
--- NOTE | 2021-11-01 08:45 | CT_ITS ---
WS: [id number] CT NECK TECHNIQUE: Contrast-enhanced CT of the neck with coronal and sagittal reformatted images. CLINICAL INFORMATION: OTALGIA/CERVICALGIA COMPARISON: None. DLP: 216.[address] scans at [facility] use at least one of these dose optimization techniques: automated e xposure control; mA and/or kV adjustment per patient size (includes targeted exams where dose is matc hed to clinical indication); or iterative reconstruction. FINDINGS: Straightening of the normal cervical lordosis. Slight anterolisthesis C2 on C3. Anterior cervical fus ion C4-C6. Mastoid air cells well aerated. Paranasal sinuses well aerated. Normal posterior nasophary nx. Normal parapharyngeal fat. Normal submandibular glands. Normal parotid glands. Normal thyroid gla nd. No cervical lymphadenopathy. No evidence of supraglottic or glottic mass. Normal vallecula and pirifo rm sinuses. Normal subglottic airway. Lung apices are well aerated. CT/CT neck w con* [id number] IMPRESSION: 1. Straightening of the normal cervical lordosis with prior ACDF C4-C6. 2. Normal salivary glands. 3. Cervical lymphadenopathy. 4. No evidence of supraglottic or glottic mass. Normal subglottic airway. 5. Paranasal sinuses and mastoid air cells well aerated. 6. No acute neck findings.
[2021-11-01] MEDS: iohexol 350 mg/mL 100 mL Btl IV (09:13)
== END 2021-11-01 08:27 | disposition home or self-care (01) ==
PROVIDERS: PCP Nurse Practitioner Family; Visit Provider Specialist
DX: H92.09 Otalgia, unspecified ear (principal); M54.2 Cervicalgia; R59.0 Localized enlarged lymph nodes
CPT/HCPCS: 70491

== ENCOUNTER → 2022-01-02 15:49 | Outpatient (BNVA) | payer OTHER, SELFPAY | PROVIDERS: PCP Nurse Practitioner Family; Visit Provider Orthopaedic Surgery | DX: H92.02 Otalgia, left ear (principal); Z47.89 Encounter for other orthopedic aftercare; Z98.1 Arthrodesis status | CPT/HCPCS: 72040 ==

== ENCOUNTER 2022-01-16 08:46 | Day surgery (SDC) | payer OTHER, SELFPAY ==
[2022-01-15 13:08] VITALS: BMI 32.1
[2022-01-16] VITALS (13 sets, daily range): BP systolic 114–144; BP diastolic 74–90; PULSE 71–85; RESP 11–21; TEMP 36.3–36.6; O2SAT 91–98
[2022-01-16] MEDS: scopolamine 1.5 Patch 1 PATCH TRANSDERMA (10:08)
[2022-01-16] MEDS: sodium chloride 0.9% 1,000 ML 30 ML IV (10:08)
--- NOTE | 2022-01-16 10:27 | P.ANESASSM_ITS ---
Pre-Anesthetic Assessment Height/Weight: Height 1.7 m Weight 92.986 kg Temp Pulse Resp BP Pulse Ox O2 Del Method 97.8 F 71 16 115/87 98 01/16/22 09:21 01/16/22 09:21 01/16/22 09:21 01/16/22 09:21 01/16/22 09:21 01/16/22 09:25 Preop Diagnosis: Loose body right knee Operation Date: 01/16/22 10:30 Proposed Procedures p Right knee arthroscopy: 36547,M23.41(Right) - Mat Rodriguez MD Familial anesthetic complications: none Was Beta Sonu taken within 24 hours: N/A Was Clonidine taken within 24 hours: N/A Last intake: Intake Last Liquid Date 01/15/22 Last Liquid Time 20:30 Last Solid Date 01/15/22 Last Solid Time 20:30 Social No alcohol and No tobacco Exam alert, oriented x 3, clear to auscultation bilaterally and regular rate & rhythm Airway Submandibular: within normal limits Cervical ROM: within normal limits (h/o ACDF) Mallampati: Class II Dentition: full CV/HEM Hypertension and Murmur (MVP) PCKD GI Gastroesophageal Reflux Disease Anesthetic Plan ASA status: 2 Anesthesia: General (TIVA) Medications/Allergies Home Medications Medication Instructions Recorded Confirmed Last Taken Type atenolol 25 mg tablet 25 mg PO DAILY 01/19/20 01/16/22 01/15/22 20:00 History cholecalciferol (vitamin D3) 25 25 mcg PO DAILY 01/19/20 01/16/22 01/15/22 08:00 History mcg (1,000 unit) capsule esomeprazole magnesium 40 mg 40 mg PO DAILY 05/14/21 01/16/22 01/16/22 07:00 History capsule,delayed release (Nexium) ibuprofen 800 mg tablet 800 mg PO TID PRN pain #60 tabs 09/12/21 01/16/22 01/14/22 Rx hydrochlorothiazide 12.5 mg tablet 12.5 mg PO DAILY 10/28/21 01/16/22 01/15/22 08:00 History hydrocodone 5 mg-acetaminophen 325 1 tab PO Q4H PRN pain 7 days #30 11/27/21 01/16/22 01/13/22 Rx mg tablet tabs tirzepatide 2.5 mg/0.5 mL 2.5 mg SUBCUT DIRECTED 01/16/22 01/16/22 01/15/22 History subcutaneous pen injector (Mounashleyro) Allergies Allergy/AdvReac Type Severity Reaction Status Date / Time Penicillins Allergy Unknown rash Verified 01/15/22 13:06 Sulfa (Sulfonamide AdvReac Intermediate nauseated Verified 01/15/22 13:06 Antibiotics) [facility] Current Medications Generic Name Dose Route Start Last Admin Trade Name Freq PRN Reason Stop Dose Admin Sodium Chloride 1,000 mls @ 30 mls/hr 01/16/22 09:30 01/16/22 10:08 Sodium Chloride 0.9% IV 01/17/22 09:29 30 mls/hr .Q24H ANA CRISTINA Administration PFSH Anesthesia Medical History Cystic kidney disease Hypertension Mitral valve prolapse No pertinent past medical history neghx: dm,thyroid,dvt/pe PCP: Niraj Mckeon Obesity Surgical History Broken arm Right arm repair. H/O neck surgery (~2020) History of anterior colporrhaphy (~09/11/21) Anterior colporrhaphy augmented with allograft, Single incision mid urethral sling, Posterior colporrhaphy and Cystoscopy preformed on 09/11/[address] Sharpe. History of repair of hiatal hernia Laparoscopic. S/P laparoscopic cholecystectomy S/P tonsillectomy and adenoidectomy S/P total abdominal hysterectomy and bilateral salpingo-oophorectomy (~1997) Endometriosis. Family History Father Diabetes Hypertension Grandfather Colon cancer Maternal, dx age unknown Hypercholesteremia Maternal Mother Hypercholesteremia Hypertension Denies family history of Ovarian cancer Heart disease Breast cancer Uterine cancer Thyroid disease Stroke Social History Smoking and tobacco status: never smoked Data Anesthesia : 01/16/22 09:45 Cardiac Studies: No Data to Display
[2022-01-16 10:29] LABS: Anion Gap 13.5 (5-19); Blood Urea Nitrogen 16 mg/dL (6-20); Calcium 9.7 mg/dL (8.5-10.5); Carbon Dioxide 30 mmol/L (22-29); Chloride 103 mmol/L (98-107); Glomerular Filtration Rate 75.3 mL/min (90-130); Glucose 86 mg/dL (65-115); Osmolality Calculated 294 mOsm/kg (285-295); Potassium 4.5 mmol/L (3.5-5.1); Sodium 142 mmol/L (136-145)
--- NOTE | 2022-01-16 10:38 | W.PM.OPSUD ---
Surgery/Procedure H&P Update DATE OF PROCEDURE: January 16, 2022 DATE H&P PERFORMED: 01/02/22 H&P UPDATE INFORMATION: I have reviewed H&P completed within last 30 days PREOP DIAGNOSIS: Loose body right knee PLANNED PROCEDURE: Operation Date: 01/16/22 10:30 Proposed Procedures p Right knee arthroscopy: 87677,M23.41(Right) - Mat Rodriguez MD
[2022-01-16] MEDS: ondansetron 2 mg/ML SDV 2 mL 4 MG IVP (10:44)
[2022-01-16] MEDS: diphenhydrAMINE 50 mg/mL SDV 1mL 12.5 MG IVP (10:44)
[2022-01-16] MEDS: ceFAZolin 2,000 MG in sodium chloride 0.9% (plus) 50 ML 100 MG IV (11:00)
[2022-01-16] MEDS: morphine 4 mg/mL SDV 1 mL 8 MG XX (11:27)
--- NOTE | 2022-01-16 11:42 | PM.OP ---
Operative Report Date of procedure: January 16, 2022 Pre-op diagnosis: Preop Diagnosis Loose body right knee Post-op diagnosis: same Post-op diagnosis: 1 cm x 1 cm loose body right knee Grade III chondromalacia medial femoral condyle Procedure done: Arthroscopic chondroplasty medial femoral condyle and patella Removal loose body right knee Pathology: none sent Surgeon: Mat Rodriguez Anesthesia: General Estimated blood loss (mL): 10 Findings: The patient had a 1 cm in diameter loose body posterior to the anterior cruciate ligament. She had thinning and fissures over the central weightbearing aspect the medial femoral condyle involving over 50% of the thickness of the cartilage. The lateral compartment was intact. She has thinning of the cartilage globally about the patella and about the most superior trochlear groove Condition: stable Disposition: PACU Procedure: The patient was taken to the operative patient was taken to the operating room and given a general anesthesia. She is prepped and draped in the supine position with a tourniquet on the right thigh. The knee was infiltrated with 30 cc of a 0.5% Marcaine solution with 8 mg of morphine. A timeout was performed. The knee was entered through the standard inferior medial and inferior lateral portal. The diagnostic portion arthroscopy was performed. The large loose body was identified in the intercondylar notch. The medial portal was expanded. It with a grasper the fragment could be grasped and retrieved through the medial portal. Attention was then focused on the medial femoral condyle. Utilizing the Nam and Nephew Werewolf probe unstable portions of cartilage over the medial femoral condyle were lightly debrided back to a stable base. This resulted in remaining perhaps 25% of the thickness of the cartilage. The leg was placed in a [id number] position. The lateral compartment was inspected and found to be healthy. Final attention was focused on the patellofemoral joint. Thinning and fissures were identified the most proximal aspect the trochlear groove and these were debrided back with the Nam and Nephew Werewolf probe. Fibrillation and thinning was identified throughout the patella. Utilizing the Nam and Nephew Werewolf probe unstable and fibrillated tissue was removed from both the medial and lateral facet. The knee was irrigated with saline. Portals were closed with 3-0 Prolene. Sterile dressings were applied. The patient was extubated and taken to recovery room in stable condition.
[2022-01-16] MEDS: fentaNYL 50 mcg/mL INJ 2mL IVP (12:01)
[2022-01-16] MEDS: oxyCODONE-APAP 5-325 mg Tablet 1 TAB PO (13:45)
--- NOTE | 2022-01-16 15:32 | ANE.PACU2 ---
Inpatient post-anesthesia follow up: Airway intact: Yes Vital signs: Temperature 97.8 F Pulse Rate 72 Respiratory Rate 14 Blood Pressure 118/76 Pulse Oximetry 94 Oxygen Delivery Me thod Room Air Oxygen Flow Rate 10 Fraction of Inspir ed Oxygen Hydration adequate: Yes Nausea and vomiting: No Pain level: 2 Mental status: Baseline
== END 2022-01-16 14:35 | disposition home or self-care (01) ==
PROVIDERS: Anesthesiology; PCP Nurse Practitioner Family; Visit Provider Orthopaedic Surgery
PROC: (CPT 29870; principal; 2022-01-16 10:20)
DX: M23.41 Loose body in knee, right knee (principal); I10 Essential (primary) hypertension; K21.9 Gastro-esophageal reflux disease without esophagitis; E66.9 Obesity, unspecified; Z68.32 Body mass index [BMI] 32.0-32.9, adult
CPT/HCPCS: 29877; 36415; 80048; J0690; J1100; J1200; J2270; J2405; J2704; J3010; J3490; J7030

== ENCOUNTER 2022-06-13 09:13 | Outpatient (CLI) | payer OTHER, SELFPAY ==
--- NOTE | 2022-06-13 09:41 | MR_ITS ---
WS: [id number] MRI HEAD WITH CONTRAST TECHNIQUE: Sagittal T1, T2 axial, T2 axial FLAIR, axial susceptibility weighted imaging, axial diffus ion weighted images, and coronal T2 images were obtained. Pre and post-T1 axial and post T1 coronal i mages. ADC and FSPGR images. CLINICAL INFORMATION: NONINTRACTABLE HEADACHE, UNSPECIFIED HEADACHE TYPE COMPARISON: None. FINDINGS: No evidence of restricted diffusion to suggest acute ischemia. Ventricular system and basal cisterns are patent. Moderate patchy supratentorial white matter changes nonspecific in a patient this age but can be seen with hypertension, diabetes, collagen vascular disease, and migraine headaches. Mild par enchymal volume loss. Normal posterior fossa. Normal vascular flow voids at the skull base. No extra- axial fluid collections. No evidence of mass or mass effect. No hemosiderin on susceptibly weighted i mages. Proximal 7th and 8th cranial nerves are normal in appearance. Normal trigeminal nerve root ent ry zones. No evidence of enhancing IAC or CP angle mass. Normal posterior nasopharynx. Normal parapharyngeal fat. Paranasal sinuses and mastoid air cells well aerated. Normal dural venous sinuses. MR/MR head wo/w con [id number] IMPRESSION: 1. No evidence of restricted diffusion to suggest acute ischemia. 2. Moderate supratentorial white matter changes nonspecific in a patient this age but can be seen with hypertension, diabetes, collagen vascular disease, and migraine headaches. Minimal parenchymal volume loss. 3. Proximal 7th and 8th cranial nerves are normal in appearance. Normal trigem inal nerve root entry zones bilaterally. 4. No evidence of enhancing IAC or CP angle mass. 5. Paranasal sinuses and mastoid air cells well aerated. 6. No other suspicious findings.
[2022-06-13] MEDS: gadobenate dimeglumine 20 mL vial IV (10:34)
== END 2022-06-13 09:14 | disposition home or self-care (01) ==
LOC: RAD 09:34
PROVIDERS: PCP Nurse Practitioner Family; Visit Provider Physician Assistant
DX: R51.9 Headache, unspecified (principal); M26.622 Arthralgia of left temporomandibular joint; G50.0 Trigeminal neuralgia
CPT/HCPCS: 70553; A9577

== ENCOUNTER 2023-01-08 14:06 | Outpatient (CLI) | payer OTHER, SELFPAY ==
--- NOTE | 2023-01-08 14:18 | MM_ITS ---
WS: [id number] BILATERAL 3D TOMOSYNTHESIS DIGITAL SCREENING MAMMOGRAPHY WITH CAD CLINICAL INFORMATION: Z12.31 - Encounter for screening mammogram for malignant ... HISTORY: Screening mammogram. No current complaints. COMPARISON: 2021 TECHNIQUE: Bilateral CC and MLO views. FINDINGS: Scattered fibroglandular densities bilaterally. No suspicious focal mass, asymmetry, calcifications, or architectural distortion. No evidence of malignancy. Few incidental punctate calcifications. IMPRESSION: MM/[place] [id number] BI-RADS: 2-Benign FOLLOW UP: 1 Year Follow-up Recommend return to annual screening mammography.
--- NOTE | 2023-01-08 15:00 | XR_ITS ---
WS: [email or web address] SCREENING DEXA SCAN [facility] CLINICAL INFORMATION: Z78.0 - Asymptomatic menopausal state COMPARISON: 2020 FINDINGS: The L1-L4 bone mineral density measures 0.850 g/cm2. This corresponds to a T score score of -2.8 and Z score of -2.5. Left femoral neck bone mineral density measures 0.816 g/cm2. This corresponds to a T score of -1.5 an d Z score of -1.2. Right femoral neck bone mineral density measures 0.812 g/cm2. This corresponds to a T score -1.6of an d Z score of -1.3. Mean femoral neck bone mineral density measures 0.814 g/cm2. This corresponds to a T score of -1.5 an d Z score of -1.2. IMPRESSION: Osteoporosis lumbar spine. Osteopenia femoral necks. Patient's FRAX calculated 10 year probability fo r major osteoporotic fracture is 12.7% and osteoporotic hip fracture is 1.8%. Bone mineral density lumbar spine increased 0.5% bone mineral density femoral necks decreased -5.3%
== END 2023-01-08 14:07 | disposition home or self-care (01) ==
LOC: RAD 14:06
PROVIDERS: PCP Nurse Practitioner Family; Visit Provider Nurse Practitioner Women's Health
DX: Z12.31 Encounter for screening mammogram for malignant neoplasm of breast; Z13.820 Encounter for screening for osteoporosis; Z78.0 Asymptomatic menopausal state; M81.0 Age-related osteoporosis without current pathological fracture; M85.852 Other specified disorders of bone density and structure, left thigh; M85.851 Other specified disorders of bone density and structure, right thigh
CPT/HCPCS: 77063; 77067; 77080

== ENCOUNTER 2024-01-13 15:20 | Outpatient (CLI) | payer OTHER, SELFPAY ==
--- NOTE | 2024-01-13 15:20 | MM_ITS ---
WS: [email or web address] BILATERAL 3D TOMOSYNTHESIS DIGITAL SCREENING MAMMOGRAPHY WITH CAD CLINICAL INFORMATION: Z12.31 - Encounter for screening mammogram for malignant ... HISTORY: Screening mammogram. No current complaints. COMPARISON: 2022 TECHNIQUE: Bilateral CC and MLO views. FINDINGS: Scattered fibroglandular densities bilaterally. No suspicious focal mass, asymmetry, calcifications, or architectural distortion. No evidence of malignancy. Punctate calcifications RIGHT breast MM/MM scr BI tomosynthesis [id number] IMPRESSION: DENSITY: There are scattered areas of fibroglandular density. BI-RADS: 2 - Benign. FOLLOW UP: 1 Year Follow-up Recommend return to annual screening mammography.
== END 2024-01-13 15:21 | disposition home or self-care (01) ==
LOC: MOBLMAM 15:23
PROVIDERS: PCP Nurse Practitioner Women's Health; Visit Provider Nurse Practitioner Women's Health
DX: Z12.31 Encounter for screening mammogram for malignant neoplasm of breast (principal); R92.323 Mammographic fibroglandular density, bilateral breasts; R92.1 Mammographic calcification found on diagnostic imaging of breast
CPT/HCPCS: 77063; 77067

== ENCOUNTER 2024-03-04 09:05 | Outpatient (CLI) | payer OTHER, SELFPAY ==
--- NOTE | 2024-03-04 09:10 | MR_ITS ---
WS: [email or web address] MRI THORACIC SPINE WITHOUT CONTRAST TECHNIQUE: Sagittal T1, T2 and STIR imaging. Axial T2 imaging. Noncontrast imaging obtained. CLINICAL INFORMATION: PAIN IN THORACIC SPINE FINDINGS: Prior postoperative changes cervical fusion with ACDF C4-C6. Thoracic curve. No thoracic kyphosis. No acute compression. No high-grade central canal stenosis. Cor d signal is normal. Normal CSF pulsation artifact in the dorsal spinal canal. Endplate Schmorl's nodes in the lower thoracic spine. Mild facet arthropathy lower thoracic spine. Mi ld RIGHT T4-5 and LEFT T9-T10 bony foraminal narrowing. A few perineural sleeve cysts similar to the prior examination at LEFT T7-T8, bilateral T8-T9, LEFT T 9-T10, LEFT T10-11, bilateral T11-12, and LEFT T12-L1. Multicystic kidneys bilaterally. Largest on the RIGHT measures approximately 1.9 cm. Kidneys are only partially evaluated. Innumerable partially visualized tiny hepatic cysts. Postoperative changes at the GE junction. Normal caliber thoracic aorta. MR/MR thoracic spin wo con* [id number] IMPRESSION: 1. Mild thoracic curve. Mild thoracic kyphosis. No acute compression fractures . 2. No high-grade central canal stenosis. Cord signal is normal. 3. Mild facet arthropathy lower thoracic spine 4. Mild RIGHT T4-5 and LEFT T9-10 bony foraminal narrowing. 5. Numerous small perineural sleeve cysts similar to previous. 6. Multicystic kidneys partially evaluated bilaterally. Innumerable tiny hepat ic cysts partially visualized.
== END 2024-03-04 09:06 | disposition home or self-care (01) ==
LOC: RAD 09:06
PROVIDERS: PCP Nurse Practitioner Women's Health; Visit Provider Anesthesiology Pain Medicine
DX: M47.894 Other spondylosis, thoracic region (principal); M40.294 Other kyphosis, thoracic region; M48.061 Spinal stenosis, lumbar region without neurogenic claudication; G96.191 Perineural cyst; M51.44 Schmorl's nodes, thoracic region; Z98.1 Arthrodesis status; M43.8X4 Other specified deforming dorsopathies, thoracic region; N28.1 Cyst of kidney, acquired
CPT/HCPCS: 72146

== ENCOUNTER → 2024-06-13 14:59 | Outpatient (BNVA) | payer OTHER, SELFPAY | PROVIDERS: PCP Nurse Practitioner Women's Health; Visit Provider Orthopaedic Surgery | DX: M25.512 Pain in left shoulder (principal); G89.29 Other chronic pain | CPT/HCPCS: 73030 ==